=== PATIENT | male | born 1955 | race Caucasian/White ===

== ENCOUNTER 2021-04-01 09:37 | Emergency (ER) | payer MEDICARE, OTHER ==
[~2021-04-01] VITALS: Ht 177.8 cm; Wt 72.6 kg
[~2021-04-01 09:37] MED LIST: ASPI81CH PO; CIPR500 PO; HYDR1TAB94 PO; LATA.005SO BOTHEYES; OXYB5 PO; Percocet 10-321 EACH PO; Pyridium200 MG PO; SILD25T PO
[2021-04-01] MEDS ORDERED: Norco 5-325 Ta1 EACH PO (12:07)
== END 2021-04-01 12:32 | disposition home or self-care (01) ==
LOC: ER 09:37
DX: S82.62XA Displaced fracture of lateral malleolus of left fibula, initial encounter for closed fracture (principal); F17.290 Nicotine dependence, other tobacco product, uncomplicated; Z79.82 Long term (current) use of aspirin; Z79.899 Other long term (current) drug therapy; W19.XXXA Unspecified fall, initial encounter
CPT/HCPCS: 29515; 73610; 99283-25; A9270

== ENCOUNTER 2024-10-26 05:52 | Emergency (ER) | payer MEDICARE, OTHER ==
[~2024-10-26] VITALS: Ht 177.8 cm; Wt 70.3 kg
[~2024-10-26 05:52] MED LIST changes: +Norco 5-325 Ta1 EACH PO
[2024-10-26] MEDS ORDERED: Ventolin5 MG/1 ML INH (06:05)
[2024-10-26] MEDS ORDERED: Ketorolac Tromethamine 30mg Vial IM ONE (06:55)
[2024-10-26] MEDS ORDERED: Dexamethasone Sod Phos 10 MG/ML 1ML VIAL PO ONE (06:55)
[2024-10-26 08:15] VITALS: BP 144/85
== END 2024-10-26 08:33 | disposition home or self-care (01) ==
LOC: ER 05:52
DX: J02.8 Acute pharyngitis due to other specified organisms (principal); F17.210 Nicotine dependence, cigarettes, uncomplicated; Z79.82 Long term (current) use of aspirin; Z79.899 Other long term (current) drug therapy
CPT/HCPCS: 87081; 87430; 96372; 99282-25; J1100; J1885